=== PATIENT | male | born 1955 | race Caucasian/White ===

== ENCOUNTER 2024-07-03 09:09 | Outpatient (CLI) | payer OTHER ==
[2024-07-03 10:14] LABS: #Basophils Less than 0.03 10x3/uL (0.0-0.2); %Basophils 0.4 % (0.0-1.0); %Eosinophils 1.6 % (0.0-10.0); %Lymphocytes 17.9 % (21.0-51.0); %Neutrophils 72.7 % (42.0-75.0); Hematocrit 41.2 % (42.0-52.0); Hemoglobin 14.3 g/dL (14.0-18.0); Mean Corpuscular HGB CONC 34.7 g/dL (32.0-36.0); Mean Corpuscular Hemoglobin 32.2 pg (27.0-31.0); Mean Corpuscular Volume 92.8 fL (78.0-98.0); Mean Platelet Volume 9.7 fL (7.4-10.4); Platelet Count 200 10x3/uL (130-400); RBC Distribution Width 11.6 % (11.5-14.5); Red Blood Cell (RBC) Count 4.44 mill/uL (4.70-6.10)
[2024-07-03 10:35] LABS: Anion Gap 12 mmol/L (10-20); BUN (Urea Nitrogen) 18 mg/dL (8.4-25.7); Calc. Creatinine Clearance 0 mL/min (70-130); Calcium 8.7 mg/dL (7.8-10.44); Carbon Dioxide 26 mmol/L (23-31); Chloride 103 mmol/L (98-107); Estimated GFR 89; Glucose 95 mg/dL (80-115); Potassium 4.2 mmol/L (3.5-5.1); Sodium 137 mmol/L (136-145)
[2024-07-03 10:35] LABS: Bacteria/HPF None Seen HPF (None Seen); Bilirubin Negative (Negative); Blood, Urine Trace (Negative); Clarity Clear (Clear); Glucose, Urine (Dipstick) Normal (Negative); Ketone, Urine Negative (Negative); Leukocyte 75 Leu/uL (Negative); Nitrite Negative (Negative); Protein, Urine (Dipstick) 30 mg/dL (Neg-Trace); RBC/HPF 0-3 HPF (0-3); Specific Gravity, Urine 1.008 (1.002-1.036); Squamous Epithelial None Seen HPF (0-3); Urobilinogen Normal mg/dL (Less than 2); WBC/HPF 21-50 HPF (0-3)
[2024-07-03 10:40] LABS: PTT 29.8 sec (22.9-36.1); Prothrombin Time 12.8 sec (12.0-14.7)
== END 2024-07-03 09:10 | disposition home or self-care (01) ==
LOC: LABBT 09:09
PROVIDERS: ATTEND Urology
DX: Z01.818 Encounter for other preprocedural examination (principal); R31.0 Gross hematuria
CPT/HCPCS: 80048; 81001; 85025; 85610; 85730; 87086; 93005; 93010

== ENCOUNTER 2024-07-11 06:24 | Day surgery (SDC) | payer MEDICARE, OTHER ==
[2024-07-03 09:33] VITALS: BMI 27.1
[2024-07-11] MEDS ORDERED: fentaNYL PF 100 MCG/2 ML SYRINGE ONE ×2 (08:28→09:23)
[2024-07-11] MEDS ORDERED: PROPOFOL 20 ML ONE ×2 (08:28→09:25)
[2024-07-11] MEDS ORDERED: Lidocaine 2% PF 5 ML VIAL ONE (08:28)
[2024-07-11] MEDS ORDERED: Ondansetron PF 4 MG/2 ML Vial ONE (08:38)
[2024-07-11] MEDS ORDERED: Dexamethasone 4 mg/ml Vial ONE (08:38)
[2024-07-11] MEDS ORDERED: Iopamidol 0 ML ONE (08:40)
[2024-07-11] MEDS ORDERED: LevoFLOXacin D5W 500 mg (100 mL) BAG ONE (08:47)
[2024-07-11] MEDS ORDERED: ePHEDrine Sulfate 50 MG/10 ML VIAL ONE (09:39)
[2024-07-11] MEDS ORDERED: Phenazopyridine HCl 100 MG TAB ONE (10:25)
[2024-07-11] MEDS ORDERED: Oxybutynin 5 MG TAB ONE (10:25)
== END 2024-07-11 13:07 | disposition home or self-care (01) ==
LOC: SDC 06:24
PROVIDERS: ATTEND Urology
PROC: 0V507ZZ Destruction of Prostate, Via Natural or Artificial Opening (ICD-10-PCS; principal; 2024-07-11)
DX: N30.20 Other chronic cystitis without hematuria (principal); N40.1 Benign prostatic hyperplasia with lower urinary tract symptoms; N13.8 Other obstructive and reflux uropathy; N32.3 Diverticulum of bladder; I10 Essential (primary) hypertension
CPT/HCPCS: 52601; A4333; J1100; J1956; J2405; J2704; 88305; Q9967